=== PATIENT | female | born 1940 | race Caucasian/White ===

== ENCOUNTER 2021-02-09 05:05 | Inpatient (IN) | payer OTHER ==
[~2021-02-09] VITALS: Ht 157.5 cm; Wt 78.5 kg
[2021-02-09] VITALS (52 sets, daily range): BP systolic 89–182; BP diastolic 33–108
[~2021-02-09 05:05] MED LIST: ACETAMINOPHEN650 M5 PO; ACID CONTROL20 MG PO; ADULT LOW DOSE81 MG PO; AFLURIA 2045 MCG/0.4; ASPIRIN325 PO; CARVEDILOL12.5 MG PO; COLACE100 MG PO; COREG PO; COUMADIN 1MG TAB1 M1 PO; COUMADIN 2 MG TA2 M1 PO; COUMADIN 4 MG TA4 M1 PO; COZAAR 50 MG TA50 M1 PO; COZAAR100 MG PO; DARVOCET-N 1001 EAC1 PO; FAMOTIDINE PO; FERRO-TIME325 MG PO; FOLIC ACID0.4 MG PO; HYDROCHLOROTHIA25 M1 PO; HYDROCHLOROTHIA25 M2 PO; HYDROCODON-ACE1 EAC7 PO; LISINOPRIL10 MG PO; LOPRESSOR25; LOPRESSOR25 PO; MAGNESIUM250 MG PO; MELOXICAM7.5 MG PO; NIASPAN 500 MG500 M1 PO; NORCO 5-325 TA1 EACH PO; PACERONE 200 M200 M1 PO; PERCOCET 5-3251 EACH PO; PLAVIX 75 MG TA75 MG PO; PNEUMOVAX25 MCG/0.5; PRILOSEC 20 MG20 MG PO; PRILOSEC40 MG PO; SYNTHROID75 MCG PO; ULTRAM 50MG TAB50 MG PO; VENOFER100 MG/51 IV; VITAMIN B-6100 MG PO; VITAMINC500 PO; VOLTAREN GEL 1100 G1; ZOCOR 20 MG TAB20 M1 PO; ZOCOR40 MG PO
--- NOTE | 2021-02-09 19:38 | NUR ---
RN ADMITTED PT FROM [facility] AT 0730AM, PT IS CONFUSED, HOSPITAL DR , NEUROLOGY DR AND CARDIOLOGY DR HAVE SEEING PT, NEW ORDER RECEIVED, PT IS ON NPO AND IV D5NS @75ML/HR, RN HAS CALLED TO REPORT PT'S AGITATION, NEW ORDER RECEIVED, PT'S VS ARE STABLE WHEN PT STAYS IN CALM , RN HAS REPROTED TO NEXT SHIFT TO KEEP EYE ON PT.
--- NOTE | 2021-02-09 23:15 | NUR ---
PT CONFUSED AND AGITATED AT START OF SHIFT. ZYPREXA GIVEN BY PREVIOUS NS AT APPROXIMATELT 16:20. PT ALERT TO SELF. SHE WAS UNABLE TO ANSWER OR FOLLOW INSTRUCTIONS TO COMPLETE THE [facility] STROKE SCALE. SHE DID KNOW HER NAME AND DATE. NEUROLOGIST ARTIST COLOR SEPARATION NOTIFIED OF CONTINUED CONFUSION. DEPACON ORDERED. NOTIFIED BRIQUETTE MAKER PT AGITIATED, PULLING AT LINES AND ATTEMPTING TO GET OOB. SOFT WRIST RESTRAINTS APPLIED. BY THE TIME DEPACON WAS AVAILABLE PTS, PULSE DROPPPED INTO 50s. , BP WNL 125/46. PT SLEEPING. NOTIFIED jackeline FOX BRIQUETTE MAKER OF PULSE IN 50s. HELD DEPACON ORDERED. ZYPREXA GIVEN AGAIN DUE TO PT BECAME RESTLESS IN BED AGAIN. SHE IS NOW SLEEPING. WILL CONTINUE TO MONITOR FOR CHANGES.
[2021-02-10] VITALS (57 sets, daily range): BP systolic 117–195; BP diastolic 40–156
--- NOTE | 2021-02-10 03:39 | NUR ---
BP ELEVATED 170-180S ESPITE HYDRALAZINE. METOPROLOL IV GIVEN. BP BETTER 156/62. PULSE 55 . ZYPREXA GIVEN . PT NOW SLEEPING.
[2021-02-10 04:38] LABS: HEMATOCRIT 35.3 % (37.0-47.0); HEMOGLOBIN 11.6 gm/dL (12.0-15.0); MCHC 32.9 g/dL (28.0-37.0); MCV 88.2 fL (80.0-100.0); RDW 16.4 % (10.5-14.5); WBC 10.1 thou/uL (4.0-11.0)
[2021-02-10 04:41] LABS: CALCIUM 9.6 mg/dL (8.5-10.1); CREATININE 1.1 mg/dL (0.6-1.0); MAGNESIUM 1.7 mg/dL (1.8-2.4); POTASSIUM 3.5 mmol/L (3.5-5.1)
--- NOTE | 2021-02-10 07:51 | NUR ---
PT REMAINS CONFUSED AND UNCOOPERATIVE WITH CARES AND NIH. HELD METOPROLOL THIS AM DUE TO PULSE IN THE 50s. SATS WNL. NO C/O OTERO/ DENIED PAIN OR CHESTPAIN TONIGHT. ZGARD TO BOTTOM . NYSTATIN TO ABDOMINAL FOLDS. MG 1.7Y . 2GM MG SULFATE IVPB GIVEN ORDERED.
--- NOTE | 2021-02-10 08:13 | HC ---
[facility] [place] [place] [address] CONSULTATION Name: APOLLO BARRAZA Room #: 246-P ADM IN M.R.#: [id number] Admission: 02/09/21 Attend Phys: Ted Renya MD Discharge: Date of : 44 Report #: [id number] THIS REPORT FOR: cc: Eligio Prabhakar MD, Bruce D. MD Park, Jin S. MD ~ DOC #: [id number] Kory Szymanski MD DATE OF SERVICE: 02/09/2021 CARDIOLOGY CONSULTATION INDICATION: History of mitral valve replacement. HISTORY OF PRESENT ILLNESS: This is a 80-year-old female with a history of CABG, mechanical mitral valve replacement, carotid endarterectomy, hypertension, admitted with confusion and mental status change. The patient is a poor historian and the history is obtained from medical records. She was initially evaluated in the ER at [facility], transferred to [facility] as their ICU was full. According to the ER history, the family reports that she became confused and combative. They report no recent trauma. She denies any episodes of shortness of breath or chest pain. She is not oriented to place or year. PAST MEDICAL HISTORY: CABG in 1998. Coronary stents in 2009. Mechanical mitral valve replacement in 2009. History of ischemic cardiomyopathy, carotid endarterectomy, chronic kidney disease. History of anemia with previous IV iron infusions. Hypertension and hypercholesterolemia. ALLERGIES: None. MEDICATIONS: At home include warfarin, carvedilol 12.5 b.i.d., omeprazole, losartan 100 mg, HCTZ, aspirin, simvastatin 40 mg. SOCIAL HISTORY: Negative for tobacco use. The patient lives with her . FAMILY HISTORY: Unobtainable. REVIEW OF SYSTEMS: Unobtainable. PHYSICAL EXAMINATION: VITAL SIGNS: Blood pressure is 120/70, heart rate is 70 beats per minute. GENERAL APPEARANCE: An elderly appearing female, lethargic, but able to answer a few simple questions. HEENT: Normocephalic, atraumatic. Oral mucosa moist. NECK: Supple. [facility] [address] [place] [address] CONSULTATION Name: APOLLO BARRAZA Room #: 246-P [facility] IN M.R.#: [id number] Admission: 02/09/21 Attend Phys: Ted Reyna MD Discharge: Date of : 44 Report #: [id number] LUNGS: Clear to auscultation. HEART: S1, S2 positive. 1/6 systolic murmur. ABDOMEN: Soft, nontender. EXTREMITIES: No cyanosis. Trace edema. LABORATORY DATA: Pending. INR is 1.7 from [place] this morning. ECG reveals sinus rhythm with a right bundle branch block, PVCs. ASSESSMENT AND PLAN: 1. Mental status change/confusion, rule out infectious process. Await neuro evaluation. 2. Mechanical mitral valve replacement, on Coumadin. INR subtherapeutic. Recommend Lovenox if cleared by neurology. 3. Coronary artery disease/coronary artery bypass graft/stents, appears to be stable. We will check a troponin level. 4. Hypertension, low blood pressure, hold blood pressure medications at this time. 5. Hypercholesterolemia, continue statin therapy. Kory Szymanski MD JP/LORENZO <ELECTRONICALLY SIGNED> By: Kory Szymanski MD 02/10/21 0813 [id number] Kory Szymanski MD /nt
[2021-02-10] MEDS ORDERED: ULTRACET TABLET1 TAB PO (12:17)
[2021-02-10] MEDS ORDERED: JANTOVEN4 MG PO (12:30)
--- NOTE | 2021-02-10 18:19 | NUR ---
RN ASSUMED PT'S CARE AT 0700AN, PT STILL IS CONFUSED AND IMPULSIVE , PT TRIES TO PUT OUT HER IV LINES AND BP CUFF , PT STILL IS ON BOTH WRIST SOFT RESTRAINT, PT CAN NOT FOLLOW COMMANDS, BUT PT STARTS TALKING , PT STARTS MICARDIPINE IV DRIP AT 1630PM FOR HIGH BP, RN HAS TITRATED TO 7.5MG/[id number] KEEP SBP < 160MMGH PER ORDER, PT HAS ORDER FRO LOW POTASSIUM REPLACEMENT TODAY, RN WILL REPORT TO NEXT SHIFT TO MYKEL ENAMORADO ON PT.
[2021-02-11] VITALS (42 sets, daily range): BP systolic 99–161; BP diastolic 38–81
[2021-02-11 03:49] LABS: CALCIUM 9.4 mg/dL (8.5-10.1); CREATININE 1.1 mg/dL (0.6-1.0); MAGNESIUM 1.8 mg/dL (1.8-2.4); POTASSIUM 3.3 mmol/L (3.5-5.1)
--- NOTE | 2021-02-11 04:04 | NUR ---
PT REMAINS CONFUSED, ORIENTED TO SELF ONLY. SHE COULD STATE HER NAME, BUT WAS UNABLE TO ACCURATELY VERBALIZE HER BIRTHDATE OR AGE. SHE C/O A MILD HEADACHE AND SOME BACK PAIN. SHE REMAINS IN BILATERAL WRIST RESTRAINTS SHE TRIES TO PULL AT LINES. SHE GETS VERBALLY AND PHYSICALLY AGITATED WITH NURSING CARES. DURING 0400 ASSESSMENT, PT ATTEMPTED TO HIT AND KICK AT NURSING STAFF. PT IS GENERALLY CALM WHEN NURSING STAFF IS NOT IN THE ROOM. SBP 130S-140S WHILE ON NICARDIPINE GTT. PT DID HAVE 100.1 FEVER AT BEGINNING OF SHIFT. FEVER RESOLVED WITH TYLENOL. NOT PROGRESSING WELL TOWARD POC GOALS. WILL CONTINUE TO MONITOR FURTHER.
--- NOTE | 2021-02-11 07:46 | NUR ---
UPON ARRIVAL PT IS GOING IN AND OUT OF BIGEMINY RHYTHM, POTASSIUM WAS LOW THIS MORNING MD NOTIFIED, THERE IS AN ORDER FOR HYDROCHLOROTHIAZIDE THIS MORNING. CURRENTLY AWAITING RESPONSE AT THIS TIME.
[2021-02-11 09:33] LABS: INR 1.7; PROTIME 17.6 Seconds (9.3-11.4)
--- NOTE | 2021-02-11 11:16 | NUR ---
chart review. discussed during am rounds and los. unable to visit with randy sutton resting with eyes closed. cm spoke with spouse jasper via phone call. intro to cm and dcp. pt from [facility], possible going for mri today. in restraints during am rounds. spouse reported, they live at home in house. son lives there also but works during the day. she independent, has cane. manage own medication. cooks and cleans kitchen. spouse does most of laundry and cleans the floor. still drives but jasper drives often. 5 steps from front door and then 5 more steps inside home. no hh or rehab in past. " 4 heart attacks and valve replacement 8-9 years ago"/jasper. will cont following as needed for dc needs.
--- NOTE | 2021-02-11 23:38 | NUR ---
PT REMAINS CONFUSED BUT MORE COOPERATIVE THIS SHIFT. C/O BACK PAIN. PRN TRAMADOL GIVEN. DENIES HEADACHE. TITRATING HEPARIN GTT PER PROTCOL. NO S/S BLEEDING NOTED. VSS. AFEBRILE. PT IS RESTLESS, BUT DOES NOT TRY TO GET OUT OF BED. RESTRAINTS REMAIN OFF. FALL PRECAUTIONS IN PLACE. WILL CONTINUE TO MONITOR.
[2021-02-12] VITALS (16 sets, daily range): BP systolic 90–168; BP diastolic 35–140
--- NOTE | 2021-02-12 03:13 | NUR ---
0100 - PT BECAME VERY RESTLESS AND IMPULSIVE, TRYING TO GET OUT OF BED. SHE WAS AGITATED AND COMBATIVE WITH NURSING STAFF. PT WAS VERY CONFUSED, UNAWARE THAT SHE IS IN THE HOSPITAL. SECURITY CALLED TO PT'S ROOM. IM OLANZAPINE GIVEN. PT THEN RESTED CALMLY IN THE BED FOR ROUGHLY 1.5 HOURS. PT IS NOW RESTLESS AGAIN IN THE BED, HAVING HALLUCINATIONS. BED ALARM ON. FALL PRECAUTIONS IN PLACE. PT NOT PROGRESSING WELL TOWARD POC GOALS. WILL CONTINUE TO MONITOR LEMUEL.
--- NOTE | 2021-02-12 03:31 | NUR ---
PT STILL VERY RESTLESS, TRYING TO GET OUT OF BED. NOTIFIED SLEEP LAB TECHNOLOGIST CHRIS. ORDER RECEIVED FOR HALDOL.
[2021-02-12 05:24] LABS: APTT 70.8 Seconds (24.5-32.8); INR 1.54; PROTIME 16.4 Seconds (10.5-12.1)
--- NOTE | 2021-02-12 09:15 | NUR ---
AT BEDSIDE. PT REFUSING MEDICATIONS AND BREAKFAST. PT STATES, "GET OUT OF MY HOUSE. YOU ARE ALL CRAZY." PT COMBATIVE W/ CARE, STATING, "DON'T TOUCH ME. YOU DON'T BELONG IN MY HOUSE. YOU'VE MADE MY JUST CRAZY YOU." PT ATTEMPTING TO HIT NURSES DURING CARE, STATING, "I WILL KNOCK YOU INTO NEXT WEEK IF YOU TOUCH ME." ZYPREXA IM GIVEN W/ ASSISTANCE X 2 NURSES. REASSURANCES PROVIDED TO PT AND . VERBALIZES UNDERSTANDING.
--- NOTE | 2021-02-12 10:54 | NUR ---
AT APPX 1000, DR. DELCID CONTACTED REGARDING PT'S PERSISTENT CONFUSION W/ VISUAL HALLUCINATIONS, COMBATIVENESS, IMPULSIVENESS, AND INABILITY TO REDIRECT. PT'S AND BROTHER AT BEDSIDE. PT REQUIRED RESTRAINTS TO PROTECT LINES/TUBES FROM PICKING/PULLING. PT'S , JOSE JUAN, UPDATED ON CONDITION AND NEED FOR RESTRAINTS. JOSE JUAN VERBALIZED UNDERSTANDING.
[2021-02-12 11:35] LABS: HEMATOCRIT 36.9 % (37.0-47.0); MCH 29.1 pg (26.0-34.0); MCHC 32.4 g/dL (28.0-37.0); MCV 89.9 fL (80.0-100.0); RBC 4.11 mil/uL (4.20-5.00); RDW 16.7 % (10.5-14.5); WBC 15.4 thou/uL (4.0-11.0)
[2021-02-12 11:42] LABS: ALBUMIN 3.4 g/dL (3.4-5.0); CALCIUM 9.7 mg/dL (8.5-10.1); CREATININE 1.2 mg/dL (0.6-1.0); POTASSIUM 3.4 mmol/L (3.5-5.1); TOTAL BILIRUBIN 0.8 mg/dL (0.2-1.0); TOTAL PROTEIN 7.8 g/dL (6.4-8.2)
[2021-02-12 12:37] LABS: URINE BILIRUBIN NEGATIVE (Negative); URINE BLOOD TRACE (Negative); URINE CLARITY CLEAR; URINE COLOR YELLOW; URINE GLUCOSE-RANDOM* NEGATIVE (Negative); URINE KETONES NEGATIVE (Negative); URINE LEUKOCYTES 1+ (Negative); URINE NITRITE NEGATIVE (Negative); URINE PROTEIN (DIPSTICK) NEGATIVE (Negative); URINE SPECIFIC GRAVITY <= 1.005 (1.005-1.035); URINE UROBILINOGEN 0.2 E.U./dl (0.2-1.0)
[2021-02-12 12:47] LABS: SQUAMOUS >10 Many /LPF (0-3)
[2021-02-12 12:48] LABS: BACTERIA 1-9 Few /HPF (None Seen); CASTS None Seen /LPF (None Seen); CRYSTALS None Seen /LPF (None Seen); URINE RBC 1-2 Rare /HPF (NONE SEEN); URINE WBC 6-15 Few /HPF (NONE SEEN)
--- NOTE | 2021-02-12 14:00 | NUR ---
AT APPX 1240, PT OFFERED LUNCH TRAY WHICH WAS REFUSED. PT OFFERED PO FLUIDS WHICH WAS REFUSED. PT STATE, "I'M NOT HUNGRY." ENCOURAGEMENT AND SUPPORT OFFERED.
--- NOTE | 2021-02-12 15:00 | NUR ---
PT'S SON AND DAUGHTER AT BEDSIDE. UPDATE GIVEN ON PT CONDITION AND CURRENT TREATMENT. VERBALIZED UNDERSTANDING.
--- NOTE | 2021-02-12 17:35 | NUR ---
PT VERY CONFUSED, COMBATIVE, UNCOOPERATIVE W/ CARE, IRRITABLE AND BELLIGERENT TODAY. BUE RESTRAINED DUE TO PULLING AT LINES/TUBES AND ATTEMPTING TO UNSAFELY EXIT THE BED NUMEROUS TIMES. FAMILY AT BEDSIDE ALL DAY. UPDATES GIVEN AT INTERVALS. UNFORTUNATELY, THE PT IS NOT PROGRESSING TOWARD GOALS AT THIS TIME.
[2021-02-13] VITALS (10 sets, daily range): BP systolic 95–156; BP diastolic 40–58
--- NOTE | 2021-02-13 06:35 | NUR ---
Patient slept most of the shift. When patient aroused for assessment, patient stated, "why are you waking me up? All I want to do is sleep." Patient then heard the patient next door yelling and she thought it was her and that we were torturing him. She was adement about getting out of bed to help him. Haldol given and patient them went back to sleep. Patient much more plesant this am. Willing to do mouth care and back care. We wached her face and she let lab draw her blood. Patient still confused about where she is and is not very redirectable. Heart rate and rhythm stable. Blood presures stable. Adequate oxygenation on room air. Adequate U/O. See interventions for assessment details. Patient is progressing towards goals.
[2021-02-13 06:47] LABS: HEMATOCRIT 33.6 % (37.0-47.0); MCH 28.8 pg (26.0-34.0); MCHC 32.7 g/dL (28.0-37.0); RBC 3.82 mil/uL (4.20-5.00); RDW 16.3 % (10.5-14.5); WBC 9.5 thou/uL (4.0-11.0)
[2021-02-13 06:59] LABS: INR 1.94; PROTIME 20.5 Seconds (10.5-12.1)
[2021-02-13 07:09] LABS: APTT 82.4 Seconds (24.5-32.8)
[2021-02-13 07:15] LABS: CALCIUM 9.3 mg/dL (8.5-10.1); CREATININE 1.5 mg/dL (0.6-1.0); POTASSIUM 3.4 mmol/L (3.5-5.1)
--- NOTE | 2021-02-13 13:30 | NUR ---
2010- ASSESSMENTS AND VITAL SIGNS DOCUMENTED. REPORT GIVEN TO ANOTHER RN FOR CONTINUATION OF CARE.
--- NOTE | 2021-02-13 18:38 | NUR ---
END OF SHIFT PT NOT PROGRESSING TOWARDS GOALS. REMAINS RESTRAINED AND CONFUSED.
[2021-02-14] VITALS (18 sets, daily range): BP systolic 104–173; BP diastolic 37–100
[2021-02-14 05:04] LABS: HEMATOCRIT 29.6 % (37.0-47.0); HEMOGLOBIN 9.8 gm/dL (12.0-15.0); MCH 29.4 pg (26.0-34.0); MCHC 33.2 g/dL (28.0-37.0); MCV 88.7 fL (80.0-100.0); RBC 3.34 mil/uL (4.20-5.00); RDW 16.2 % (10.5-14.5); WBC 17.7 thou/uL (4.0-11.0)
[2021-02-14 05:12] LABS: CREATININE 1.5 mg/dL (0.6-1.0)
[2021-02-14 05:27] LABS: INR 3.23; PROTIME 33.3 Seconds (10.5-12.1)
--- NOTE | 2021-02-14 05:37 | NUR ---
Pt. able state her name ,catrachita and she's at the hospital at beginning of shift then later on oriented to person only. She has been restless , impulsive and attempting to get out of bed. She slept intermittently during the night but mostly awake.She is talking to somebody in the room when awake. Medicated for pain for generalized pain , stating she hurt all over with some relief. Haldol also given with not much help. Zyprexa 5 mg IM given with some help. Slept some then woke up in an calmer mood and more cooperative but remains restless. Assisted to reposition for comfort. No bleeding from being on heparin gtt. She has been afebrile and tolerating room air well. Making slow progress towards care plan goals.
--- NOTE | 2021-02-14 10:03 | NUR ---
Nutrition: Pt with minimal po intake past 5 days. Nsg reports unable to focus on eating due to hallucinations, confusion. Possibly ate some yesterday per records but unsure if accurate. Recommend initiation of Clinimix PPN at 80 mL/hr til pt eating adequately.
--- NOTE | 2021-02-14 15:16 | NUR ---
cm visit with pt, alert, confusion, talking to family and her cat who is not in the room. in restraints, pulling at lines. spouse jasper at bedside. he reported that this is not her baseline " she was independent at home, has cane, wheel chair- she doesnt use. manage own medication, pay the bills, still can drive but he drives. 5 steps to enter and 5 stairs inside the home per jasper. education on dcp, skilled rehab when ready for stable dc. no anticipated dc over the weekend. she will need to be restraint free for 24hours and able to work with therapy before any referral can be sent out.
--- NOTE | 2021-02-14 16:35 | NUR ---
CONFUSION AND RESTLESSNESS CONTINUES, VISUAL HALLUCINATIONS ONGOING. ATTEMPTED SEVERAL TRAILS OF RESTRAINT RELEASE WHILE IN THE ROOM WITH PATIENT AND SHE IMMEDIATELY ATTEMPTS TO REMOVE EQUIPMENT AND GET OUT OF BED. WAITING FOR MEDSURG ROOM NEAR THE NURSES STATION SO THAT SHE CAN BE FREE OF MEDICAL EQUIPMENT AND UNRESTRAINED. AT BEDSIDE AND ATTEMPTS TO REDIRECT PATIENT.
[2021-02-15] VITALS (29 sets, daily range): BP systolic 65–199; BP diastolic 21–133
--- NOTE | 2021-02-15 05:11 | NUR ---
pt aggressive and not cooperative for most of shift. hallucinating frequently, talking to her animals in the room, screaming that dogs are trying to bite her, and yelling at "the man in the corner" to get out of her house. delusions include: "my sister needs me to go pick her up because shes not safe," "the baby just fell off that table over there," and "I need to get my checkbook to give you money." pt spoke in a soft tone in "baby talk" to her "dog in bed with me." yelling at this rn to "get away from me, you dumb bitch." appeared to close eyes for maximum of 1 consecutive hour. constantly attempting to pull at tele wires, pull pillows out from under elbow, kick off scds and pull arms out of restraints. hr sr-st 60-100 with frequent pvc/trigeminy. 1x dose hydralazine. 1x dose of hydrocodone for pain in r hip. pt asking for pain meds, but when offered, refused, stating "you probably poisoned it." had to show pt package and convince her that it was a pain pill before she would swallow it.
[2021-02-15 05:20] LABS: HEMATOCRIT 25.1 % (37.0-47.0); HEMOGLOBIN 8.1 gm/dL (12.0-15.0); MCH 28.3 pg (26.0-34.0); MCHC 32.2 g/dL (28.0-37.0); MCV 87.8 fL (80.0-100.0); RBC 2.85 mil/uL (4.20-5.00); RDW 15.9 % (10.5-14.5); WBC 17.3 thou/uL (4.0-11.0)
[2021-02-15 05:27] LABS: INR 4.04; PROTIME 41.2 Seconds (10.5-12.1)
[2021-02-15 05:28] LABS: CALCIUM 9.2 mg/dL (8.5-10.1); CREATININE 1.4 mg/dL (0.6-1.0); POTASSIUM 3.5 mmol/L (3.5-5.1)
[2021-02-15 09:49] LABS: URINE BILIRUBIN NEGATIVE (Negative); URINE BLOOD NEGATIVE (Negative); URINE CLARITY CLEAR; URINE COLOR YELLOW; URINE GLUCOSE-RANDOM* NEGATIVE (Negative); URINE KETONES 1+ (Negative); URINE LEUKOCYTES-REFLEX TRACE (Negative); URINE NITRITE-REFLEX NEGATIVE (Negative); URINE PROTEIN (DIPSTICK) NEGATIVE (Negative); URINE UROBILINOGEN 0.2 E.U./dl (0.2-1.0)
--- NOTE | 2021-02-15 13:50 | NUR ---
discussed during am rounds and los, still requiring restraints rt pulling at lines, hitting, kicking. reported she been talking with people and animals in room that are not there. no anticipated dc over the weekend. will cont following as needed for dc needs. she might required rehab prior to dc home, her and live close to [place]. acute rehab vs skilled rehab was discussed with spouse during yesterdays visit with cm.
--- NOTE | 2021-02-15 14:01 | NUR ---
ASSUMED CARE OF PT AROUND 1300. PT RESTING QUIETLY AT THIS TIME VSS. AT BEDSIDE. WILL CONTINUE TO MONITOR.
[2021-02-16] VITALS (21 sets, daily range): BP systolic 81–164; BP diastolic 31–69
[2021-02-16 04:52] LABS: MCH 29.5 pg (26.0-34.0); MCHC 33.1 g/dL (28.0-37.0); MCV 89.2 fL (80.0-100.0); RBC 2.16 mil/uL (4.20-5.00); RDW 16.1 % (10.5-14.5); WBC 13.7 thou/uL (4.0-11.0)
[2021-02-16 05:04] LABS: INR 3.74; PROTIME 38.3 Seconds (10.5-12.1)
[2021-02-16 05:14] LABS: HEMATOCRIT 19.2 % (37.0-47.0); HEMOGLOBIN 6.4 gm/dL (12.0-15.0)
[2021-02-16 05:16] LABS: CALCIUM 8.5 mg/dL (8.5-10.1); CREATININE 1.6 mg/dL (0.6-1.0); POTASSIUM 3.4 mmol/L (3.5-5.1)
--- NOTE | 2021-02-16 05:16 | NUR ---
ASSESSMENTS CHARTED, MEDS CHARTED GIVEN. PATIENT STARTED SHIFT IN RESTRAINTS, SLEEPING. IN SINUS RHYTHM WITH BBB ON TELEMETRY. ON ROOM AIR. DURING SHIFT PATIENTS BLOOD PRESSURE DROPPED AND STAYED LOW. PATIENT ONLY RESPONSIVE TO STERNAL RUB. CALLED DR. BLOCK. ORDER FOR BOLUS, THEN ORDER FOR MAINTENANCE DRIP UNTIL BLOOD PRESSURE GOT UP INTO THE 160'S SYSTOLICLY. MAINTENANCE FLUIDS STOPPED, BLOOD PRESSURE MAINTANINED BELOW 150 SYSTOLIC. C/O PAIN IN RIGHT HIP AND LEG. GAVE ONE DOSE OF NORCO AT 0345 FOR PAIN. PATIENT WAS THEN TRANSFERED TO 4TH FLOOR. REPORT WAS GIVEN TO RECEIVING NURSE, ITEMS POSSESSIONS WERE GATHERED IN PREPARATIONS FOR MOVE. PLAN OF CARE IS FOR SPINAL TAP SOON WARFARIN IS OUT OF HER SYSTEM ENOUGH TO PREFORM TEST. FALL PRECAUTIONS IN PLACE DURING SHIFT. PATIENT WAS TAKEN OUT OF RESTRAINTS AT MIDNIGHT SHE WAS NOT MESSING WITH THE MEDICAL EQUIPMENT ANYMORE.
[2021-02-16 06:56] LABS: HEMATOCRIT 20.3 % (37.0-47.0); HEMOGLOBIN 6.5 gm/dL (12.0-15.0); MCH 28.6 pg (26.0-34.0); MCHC 32.1 g/dL (28.0-37.0); MCV 89.2 fL (80.0-100.0); RBC 2.27 mil/uL (4.20-5.00); RDW 16.3 % (10.5-14.5); WBC 15.3 thou/uL (4.0-11.0)
--- NOTE | 2021-02-16 15:47 | NUR ---
ASSUMED PT CARE THIS AM. PT A&OX1. VITAL SIGNS CHARTED. PHYSICIAN MADE AWARE OF FLUCTUATING BLOOD PRESSURES THROUGHTOUT DAY. PATIENT RECEIVED ONE UNIT OF RBC DURING THIS SHIFT. PATIENT APPEARED PALE WHEN ASSESSED THIS AM, ONCE BLOOD HAD TRANSFUSED, PATIENT SKIN APPEARED MORE APPROPRIATE IN COLOR. PATIENT WITH BRUISING TO BILATERAL UPPER EXTREMETIES, AND RIGHT HIP. REPORTED NO PAIN WHEN ASSESSED THIS AM, BUT REPORTED PAIN IN THE RIGHT LEG AND GIVEN PAIN MEDS PER EMAR. PATIENT PLACED ON TELEMETRY FOR CLOSER MONITORING. HEMOGLOBIN AND HEMATOCRIT TO BE RECHECKED. PATIENT ON ROOM AIR. ABLE TO MAKE NEEDS KNOWN. PATIENT RECEIVING A BED BATH TODAY AND SATURNINO CARE GIVEN. REPORTING NO NUMBNESS OR TINGLING. PATIENT TAKES MEDS WELL CRUSHED IN PUDDING. IV PATENT. FALL PRECAUTIONS ARE IN PLACE, CALL LIGHT WITHIN REACH.
[2021-02-16 16:26] LABS: HEMATOCRIT 24.8 % (37.0-47.0); HEMOGLOBIN 8.2 gm/dL (12.0-15.0)
[2021-02-17] VITALS (8 sets, daily range): BP systolic 129–166; BP diastolic 45–76
[2021-02-17 04:55] LABS: HEMOGLOBIN 6.6 gm/dL (12.0-15.0)
[2021-02-17 04:56] LABS: MCH 30.4 pg (26.0-34.0); MCV 89.2 fL (80.0-100.0); RBC 2.18 mil/uL (4.20-5.00); RDW 15.1 % (10.5-14.5); WBC 11.6 thou/uL (4.0-11.0)
[2021-02-17 05:06] LABS: HEMATOCRIT 19.5 % (37.0-47.0); INR 3.14; PROTIME 32.4 Seconds (10.5-12.1)
[2021-02-17 05:11] LABS: CALCIUM 7.9 mg/dL (8.5-10.1); CREATININE 1.4 mg/dL (0.6-1.0); POTASSIUM 3.3 mmol/L (3.5-5.1)
--- NOTE | 2021-02-17 05:52 | NUR ---
Assumed pt care at 1900. Alert and oriented to self only,able to voice needs at times. Visual hallucination noted on and off. Pt c/o pain to right hip with movement,medicated with Tramadol with some relief reported. Pt bruised on arms,abd and right thigh;Coumadin on hold.Pt repositioned as tolorated,jones patent with yellow urine noted. Incontinent of BM,small. Pt's HG 6.6,HCT 19.5 this morning;Ila GRIMES notified. N.o to tranfuse 1 unit PRBC today and recheck H&H 1 hour after transfusion. Fall precautions in place,frequent checks on pt. Pt observed attempting to pull IV/Jones lines hidden. SR/SB on telemetry. Resting w/o any distress, will continue to monitor pt.
--- NOTE | 2021-02-17 15:20 | NUR ---
Patient alert and orinted to self, tolerating diet well, eating with encouragment, family at bedside, haldol given scheduled per MAR for agitation, pain medications given per patients request, vitals stable, and afbriele. Bed alarm on. Will continue to monitor.
[2021-02-17 17:41] LABS: HEMATOCRIT 25.7 % (37.0-47.0)
[2021-02-17 17:43] LABS: HEMOGLOBIN 8.6 gm/dL (12.0-15.0)
[2021-02-18 05:47] LABS: HEMATOCRIT 27.3 % (37.0-47.0); HEMOGLOBIN 9.2 gm/dL (12.0-15.0); MCH 30.4 pg (26.0-34.0); MCHC 33.6 g/dL (28.0-37.0); MCV 90.5 fL (80.0-100.0); RBC 3.02 mil/uL (4.20-5.00); RDW 15.3 % (10.5-14.5); WBC 13.6 thou/uL (4.0-11.0)
[2021-02-18 05:55] LABS: CALCIUM 8.4 mg/dL (8.5-10.1); CREATININE 1.2 mg/dL (0.6-1.0); INR 2.15; POTASSIUM 3.4 mmol/L (3.5-5.1); PROTIME 22.6 Seconds (10.5-12.1)
--- NOTE | 2021-02-18 07:42 | NUR ---
PT LYING IN BED. INCONTINENT. IMPULSIVE AND SOMETIMES COMBATIVE. LORTAB PROVIDING PAIN RELIEF. FREQUENT OBSERVATION.
[2021-02-18 08:03] VITALS: BP 175/61
--- NOTE | 2021-02-18 19:06 | NUR ---
Patient alert and orinted to only self, bed alarm on, on room air, medications given per MAR, patient calm throughout the day, has been at bedside, vital signs stable, and afbriele. Call light with in reach. bed alarm on, will continue to monitor.
[2021-02-18 19:27] VITALS: BP 149/67
--- NOTE | 2021-02-19 04:18 | NUR ---
Assumed pt care at 1900. A/OX1-2, able to voice needs at times. pt's is impulsive as well, pulling on IV's,tele and gown,lines hidden without any success. Medicated per EMAR with Haldol with minimal relief. Pt's IV reinserted after 6 attempts. Pt later pulled IV out even after being hidden and covered in coban. Pt has refused to have IV reinserted at this time and hitting staff's hand to stop. Boat Designer Mu notified of pt's status and indicated we give patient time to settle and try during the day. Pt has ABTs/IV fluids d/t at this time, will pass on to oncoming nurse. Fall precautions in place,frequent checks on pt as she's trying to get herself of bed frequently too. Incontinent of B&B this shift.
[2021-02-19 04:38] LABS: HEMATOCRIT 27.3 % (37.0-47.0); HEMOGLOBIN 9.3 gm/dL (12.0-15.0); MCH 31.1 pg (26.0-34.0); MCV 91.5 fL (80.0-100.0); RBC 2.98 mil/uL (4.20-5.00); RDW 15.3 % (10.5-14.5); WBC 14.5 thou/uL (4.0-11.0)
[2021-02-19 04:47] LABS: CALCIUM 8.5 mg/dL (8.5-10.1); CREATININE 1.1 mg/dL (0.6-1.0); POTASSIUM 3.5 mmol/L (3.5-5.1)
[2021-02-19 07:32] VITALS: BP 165/80
[2021-02-19 08:16] LABS: INR 1.7; PROTIME 18.1 Seconds (10.5-12.1)
--- NOTE | 2021-02-19 11:46 | NUR ---
CARE TEAM INDICATED THAT THEY ANTICIPATE RECHECKING PT'S INR AND THEN POSSIBLY DOING LP. ST ASSESSED PT. PT AND OT WERE OREDERED TO EVALUATE. CARE TEAM INDICATED THAT PT WILL LIKELY NEED POST ACUTE CARE STAY. CM TO VISIT WITH SPOUSE WHO VISITS DAILY TO PROVIDE [facility] SNF LIST FOR REVIEW. CM FOLLOWING REGARDING DC PLANNING.
[2021-02-19 18:01] VITALS: BP 158/70
--- NOTE | 2021-02-19 20:01 | NUR ---
Patient alert and orinted to person, on room air, up with a assist with walker with one, vital signs stable, and afbreile. Patient saline locked. Call light with in reach, bed alarm on, will continue to monitor.
[2021-02-20 03:59] VITALS: BP 178/72
--- NOTE | 2021-02-20 05:19 | NUR ---
Assumed pt care at 1900. A/OX2,sleepy but easily arousable. HS/midnight med held. VSS. Pt awake this morning and requested to go to the bathroom,up with GB/RW, limp slow gait to the BR. Incontinent of soft unformed BM. C/o right hip pain 06/07, mediacated with [place],will monitor effectiveness. SB/SR on telemetry. Fall precautions in place,will continue to monitor pt.
[2021-02-20 07:38] LABS: HEMATOCRIT 24.2 % (37.0-47.0); HEMOGLOBIN 8.2 gm/dL (12.0-15.0); MCV 91.2 fL (80.0-100.0); RBC 2.66 mil/uL (4.20-5.00); RDW 15.4 % (10.5-14.5); WBC 11.8 thou/uL (4.0-11.0)
[2021-02-20 07:51] LABS: CALCIUM 8.4 mg/dL (8.5-10.1); CREATININE 1.4 mg/dL (0.6-1.0); POTASSIUM 3.2 mmol/L (3.5-5.1)
[2021-02-20 07:58] LABS: INR 1.3; PROTIME 13.8 Seconds (9.3-11.4)
--- NOTE | 2021-02-20 11:42 | NUR ---
ASSUMED PT CARE THIS AM. PT A&OX1-1. ABLE TO MAKE NEEDS KNOWN. PATIENT HAS BEEN COOPERATIVE WITH STAFF DURING THIS SHIFT. PATIENT HAS BEEN CONTINENT AND HAS AMBULATED TO THE BATHROOM WITH ASSIST. REPORTS PAIN IN THE RIGHT LOWER EXTREMITY/HIP AREA, RESPONDED WELL TO PAIN MEDS GIVEN PER EMAR. PATIENT HAS BRUISING ON BILATERAL UPPER EXTREMETIES. PATIENT IS ON ROOM AIR. REPORTING NO NUMBNESS OR TINGLING. PATIENT REMAINS ON TELEMETRY. IV PATENT, SALINE LOCKED. FALL PRECAUTIONS ARE IN PLACE, CALL LIGHT WITHIN REACH. AT BEDSIDE.
--- NOTE | 2021-02-20 12:30 | HC ---
[facility] [place] [address] CONSULTATION Name: APOLLO BARRAZA Room #: 451-P ADM IN M.R.#: [id number] Admission: 02/09/21 Attend Phys: Ted Reyna MD Discharge: Date of : 44 Report #: [id number] THIS REPORT FOR: cc: Eligio Prabhakar MD, Bruce D. MD Barry, Joseph W. MD ~ DOC #: [id number] Milad Peralta MD DATE OF SERVICE: 02/19/2021 INFECTIOUS DISEASE CONSULTATION ATTENDING PHYSICIAN: Dr. Reyna. REASON FOR EVALUATION: Marked encephalopathy, question of HULL AND DECK REMOVER infection. HISTORY OF PRESENT ILLNESS: Chart was reviewed. The patient was examined. This is a 80-year-old woman with history of known vasculopathy, has previous mitral valve replacement, hypertension, who presented with marked change in her mental status, abrupt nature ____ hospital. She was transferred here for ongoing care. She was found to be markedly hypertensive and was improved. Encephalopathy has improved at least intermittently, although it is sort of cyclical. She was noted to be significantly anticoagulated. This has been complicated by multiple hematomas. She continues to have marked encephalopathy, although per nurse it was better yesterday, not really arouse her. At this point, her eyes are barely open, in moderate distress. She is to have a lumbar puncture; however, due to her elevated PT/INR, this has been postponed, empirically placed on ceftriaxone for suspected complicated urinary tract infection and had been briefly on IV acyclovir as well. She has not had fevers. No history of recent focal neurological deficits. There was a question of TIA, carotid artery shows mild bilateral atherosclerotic plaquing. Chest x-ray showed no acute infiltrates. CT abdomen and pelvis showed a heterogeneous right psoas muscle consistent with a retroperitoneal hematoma. Also, multiple rounded soft tissue masses are present. Right lower back and right buttock again suggesting hematoma, prior left nephrectomy and porcelain gallbladder as well. ALLERGIES: None known. MEDICATIONS: Include levothyroxine, ceftriaxone, Haldol as needed, carvedilol, olmesartan, topiramate, warfarin, hydrochlorothiazide, aspirin, pantoprazole, nicardipine, tramadol, p.r.n. analgesics. PAST MEDICAL HISTORY: As described above, hypertension, high cholesterol, history of known coronary disease with previous acute myocardial infarction, aortocoronary bypass grafting, mitral valve replacement, reflux, hypothyroidism, previous left nephrectomy, asthma, iron deficiency anemia, [place] [address] CONSULTATION Name: APOLLO BARRAZA Room #: 451-P [facility] IN ..#: [id number] Admission: 02/09/21 Attend Phys: Ted Reyna MD Discharge: Date of : 44 Report #: [id number]. SOCIAL HISTORY: Nonsmoker, no ethanol, no illicit drug use. FAMILY HISTORY: Noncontributory. REVIEW OF SYSTEMS: Not obtainable. PHYSICAL EXAMINATION: GENERAL: She appears chronically ill. She is mildly restless, in moderate distress, really does not respond more than a basic level. VITAL SIGNS: Temperature 98.4, pulse 72, respirations 17, blood pressure is 165/80. SKIN: Warm. HEENT: Normocephalic. She does have a degree of neck stiffness. I am not sure this is true meningismus. LUNGS: Diminished breath sounds. HEART: Regular rhythm with mitral valve click, appreciated murmur. ABDOMEN: Appears to be uncomfortable with exam, although this is due to abdominal wall hematoma, does not appear to be acute overt peritoneal signs. GENITOURINARY AND RECTAL: Deferred. LABORATORY DATA: Recent PT 18.1, INR of 1.7. Electrolytes: Sodium 140, potassium 3.5, chloride 105, bicarbonate is 22, anion gap of 13, BUN and creatinine 22 and 1.1, glucose of 93, estimated GFR 48. CBC: White count 14.5, H and H 9.3 and 27.3, platelet count of 411. DIAGNOSTIC DATA: A CT abdomen and pelvis as noted above. MRI of the head on 02/11/2021 was otherwise unremarkable. No changes or inflammation noted in the temporal lobes, some mild chronic white matter vascular changes. ASSESSMENT AND PLAN: Encephalopathy abrupt onset with evidence at that point of hypertension, although no imaging evidence of any HULL AND DECK REMOVER inflammation or acute processes given likely this is not bacterial, when the viral is most common etiology given the history of exposures, although certainly arthropod exposure could lead to some sort of a meningoencephalitis, noted a delay in obtaining a lumbar puncture due to anticoagulation for mitral valve, not entirely clear, it seems less likely to me to be an infectious etiology. Continue to monitor closely if develops any other signs and symptoms, rash, etc., may give us additional clue or may require a followup diagnostic testing. She remains quite tenuous at this point. We will monitor expectantly. MD ALLISON Dennis/MICHEAL/ZULY [address] [address] CONSULTATION Name: APOLLO BARRAZA Room #: 451-P ADM IN M.R.#: [id number] Admission: 02/09/21 Attend Phys: Ted Reyna MD Discharge: Date of : 44 Report #: [id number] <ELECTRONICALLY SIGNED> By: Milad Peralta MD 02/20/21 1230 [id number] Milad Peralta MD /nt
[2021-02-20 13:35] LABS: CSF GLUCOSE 62 mg/dL (40-70); CSF PROTEIN 43 mg/dL (15-45)
[2021-02-20 13:42] LABS: CSF CLARITY CLEAR; CSF COLOR COLORLESS; VOLUME 2.5 ml
[2021-02-20 13:43] LABS: CSF RBC 0 /mm3; CSF WBC 1.1 /mm3 (0-10)
[2021-02-20 15:51] VITALS: BP 148/48
[2021-02-20 20:00] VITALS: BP 172/70
[2021-02-21 07:16] VITALS: BP 184/62
--- NOTE | 2021-02-21 07:37 | NUR ---
ASSESSMENT PER DOCUMENTATION.PT RESTED ALL NOC IN NAD.REMAINS PLEASANTLY CONFUSED BUT FOLLOWS COMMANDS APPROPRIATELY.PT HYPERTENSIVE W/SBP>170,PRN HYDRALAZINE GIVEN W/PARTIAL EFFECTIVENESS.STAFF ASSIST W/TRANSFERS.PT HAD COUPLE OF LOOSE BOWELS MOVEMENT,NOTIFIED DAY RN TO KEEP AN EYE ON THE FREQUENCY AND IF NEED TO TEST FOR C-DIFF.NO ACTIVE BLEEDING NOTED.TYLENOL GIVEN FOR HEADACHE AND GENERALIZED PAIN.WILL CONT WITH POC.
[2021-02-21 11:20] VITALS: BP 139/60
--- NOTE | 2021-02-21 13:41 | NUR ---
PT HAD MRI THIS AM. CM REACHED OUT TO [facility] THIS AM AND SPOKE WIHT AURA. SHE INDICATED THAT SHE JUST FILLED HER LAST BED. SHE RECOMMENDED CM TRY [facility]. CM MET WITH PT AND SPOUSE AT BEDSIDE AND EXPLAINED THE ABOVE. THEY WERE AGREEABLE WITH REFERRAL BEING SENT TO [facility] FOR REVIEW. CM FAXED REFERRAL. PT WILL NEED AUTH FROM [facility] IF THEY ARE ACCEPTING. CM FAXED NEGATIVE COVID TEST. PT WILL LIKELY NEED TO BE 24HRS WITHOUT HALDOL PRIOR TO DC. CM FOLLOWING REGARDING DC PLANNING.
--- NOTE | 2021-02-21 13:56 | NUR ---
Received awake on bed. Due medications given as prescribed. On telemetry; no complains and signs of chest pain, crushing sensation and heaviness. On room air. Vital signs stable. On heart healthy diet- tolerating well; no nausea, no vomiting and no abdominal pain noted. With on and off incontience; checked frequently and changed as needed; using bedside commode at times. Falls bundle in place. Assisted and encouraged in eating and drinking. With bruise at R hip- from prev fall at home. With SL at L FA. With at bedside, update given. Assisted in ADLs. Pt went down for MRI via wheelchair, back to room safely. Pt seen and examined by PT/OT, able to sit out on the chair. Covid swab done, specimen obtained and sent to lab- as per CM; for placement. With BP elevation noted this AM, rechecked BP- WNL. To continue monitoring patient.
[2021-02-21 16:04] VITALS: BP 138/55
[2021-02-21 19:24] VITALS: BP 170/75
--- NOTE | 2021-02-22 01:53 | NUR ---
ASSESSMENT: PT REMAIN ALERT TO SELF ONLY. CONFUSED TO PLACE, SITUATION, AND TIME. FOLLOW SIMPLE COMMANDS. VSS, AFEBRILE. SR PER MONITOR. DENIES PAIN. HALDOL HELD FOR POSSIBLE PLACEMENT TODAY. BED ALARM SET, FALL PRECAUTIONS IN EFFECT. 3 BED RAILS ENGAGED. NO WRIST RESTRAINTS. NOT EAST TO REORIENT. PT INSIST ON BELIEVING THAT SHE LET A FRIEND DOWN SIMPLY BECAUSE; "SHE DID NOT DO WHAT SHE TOLD HER THAT SHE WAS GONNA DO". PT TALKS OF HER AND THINKS THAT HE IS IN THE ROOM. TRAMADOL GIVEN FOR GENERALIZED PAIN/LEG PAIN. SLOW PROGRESS TOWARDS DC GOALS. WILL CONTINUE TO MONITOR.
[2021-02-22 08:57] VITALS: BP 191/80
[2021-02-22 13:42] VITALS: BP 113/56
--- NOTE | 2021-02-22 13:47 | NUR ---
RAPID RESPONSE CALLED ON PATIENT. PATIENT SITTING ON COMMODE UPON ENTERING ROOM. PRESENTS VASOVAGAL RESPONSE. DR. MONTANEZ IN ROOM. INITIALLY PAGED CODE STROKE AND THEN CANCELLED DUE TO PATIENT PRESENTATION. PATIENT ALERT AND CONVERSING WITH STAFF. NO ONE SIDED NEGELECT OR DEFECIT. CANCELLED CODE STROKE PER DR. MONTANEZ. ORDERS FOR CBC, BMP, AND HEAD CT.
[2021-02-22 14:05] LABS: HEMATOCRIT 30.6 % (37.0-47.0); MCH 30.2 pg (26.0-34.0); MCHC 32.7 g/dL (28.0-37.0); MCV 92.4 fL (80.0-100.0); RBC 3.31 mil/uL (4.20-5.00); RDW 15.9 % (10.5-14.5); WBC 16.6 thou/uL (4.0-11.0)
[2021-02-22 14:12] LABS: CALCIUM 9.2 mg/dL (8.5-10.1); CREATININE 1.4 mg/dL (0.6-1.0); POTASSIUM 3.8 mmol/L (3.5-5.1)
--- NOTE | 2021-02-22 16:14 | NUR ---
CM CALLED TO CHECK WITH [facility] THIS AM BUT NO RESPONSE OF YET. CM INFORMED CARE TEAM THAT NEITHER OF THE SKILLED FACILITIES PT AND SPOUSE WANTED REFERRALS SENT TO ARE ACCEPTING OF PT CURRENTLY RELATED TO HER DOCUMENTED BEHAVIORS AND HER POTENTIAL NEED FOR 1:1. PT HAD POSSILE VASOVAGEL SYNCOPAL EPISODE HIS AFTERNOON AND UNDERWENT CTS. CM TO FOLLOW UP WIHT [facility] PT CLEARS BEGINING OF NET WEEK.
--- NOTE | 2021-02-22 17:37 | NUR ---
Assumed pt care at 7am.Pt in bed very confused and agitated trying getting out of bed without assist.Rn reoriented pt and she was able to eat and took meds with spouse assist.Around 1330, pt was on bsc having bm.hospital secretary was with pt trying to transfered pt to bed but pt became unresponsive. RAT team activated.Blood sugar was 123. V s taken and recorded as bp 113/56,pulse 72, temp97.1,o2 sat on room air was 96%.Dr Price rounded on pt and ct head and neck stat orderder.Pt was wheeled per bed to ct dept.Pt condition was improved and talking prior to going for ct. Pt heart rate per tele has been fluctuated but now stable.Dr Katz her for psych eval.Pt in bed resting at present.Will continue to monitor.
[2021-02-22 19:39] VITALS: BP 130/53
--- NOTE | 2021-02-23 01:29 | NUR ---
ASSSUMED CARE OF PT AT SHIFT CHANGE. PT IS ALERT BUT ONLY ORIENTED TO PERSON. FALL PRECAUTION IN PLACE. PT CAN BE IMPULSIVE. PT REPORTED SOME PAIN AND PRNS WERE PROVIDED. PT DENIED NAUSEA OR SOA. ASSESSMENT CHARTED. PT IS INCT AT TIMES. PT WAS ABLE TO GET COMFORTABLE AND SLEEP PART OF THE SHIFT. VSS AND NO S/S OF ACUTE DISTRESS. WILL CONTINUE TO MONITOR.
[2021-02-23 05:34] LABS: HEMATOCRIT 26.2 % (37.0-47.0); HEMOGLOBIN 8.8 gm/dL (12.0-15.0); MCH 31.1 pg (26.0-34.0); MCHC 33.6 g/dL (28.0-37.0); MCV 92.7 fL (80.0-100.0); RBC 2.82 mil/uL (4.20-5.00); WBC 12.4 thou/uL (4.0-11.0)
[2021-02-23 05:43] LABS: CALCIUM 8.7 mg/dL (8.5-10.1); CREATININE 1.3 mg/dL (0.6-1.0); POTASSIUM 3.3 mmol/L (3.5-5.1)
[2021-02-23 05:47] LABS: INR 1.14; PROTIME 12.4 Seconds (10.5-12.1)
[2021-02-23 07:10] VITALS: BP 111/53
--- NOTE | 2021-02-23 11:42 | NUR ---
Received awake on bed. Due medications given as prescribed, crushed and mixed with apple sauce. Still with confusion noted but not combative and aggressive, can be impulsive and go out of the bed at times- reassured from time to time. On telemetry; no complains and signs of chest pain, crushing sensation and heaviness. Assisted in ADLs. On room air. Vital signs stable. On heart healthy diet- tolerating well; no nausea, no vomiting and no abdominal pain. With on and off incontinence; checked frequently and changed as needed; able to use bedside commode at times; falls bundle in place- possible vaso-vagal yesterday as per Night RN. No complains of pain during assessment. With SL at L and R FA. To continue monitoring patient. With at bedside, update given. Pt seen and examined by Dr Dean this AM- for 5N evaluation since pt's not receptive to 5S and NH; a/w 5N evaluation and recommendations.
--- NOTE | 2021-02-23 13:09 | EKG ---
[place] [address] [facility] [place] [address] ELECTROCARDIOGRAM REPORT Name: REEMA BARRAZAN Maribell Room #: 451- ADM IN M.R.#: [id number] Admission: 02/09/21 Attend Phys: Ted Reyna MD Discharge: Date of : 44 Report #: [id number] [facility] Test Date: 2021-02-22 Test Time: 13:51:22 Pat Name: APOLLO BARRAZA Department: Room: [facility] Gender: F [employer] Designer: HOLLY : 1940 Requested By: Ted Reyna Order Number: [id number] MD: Brian Gonzales Measurements Intervals [place] Rate: 61 P: 104 PA: 145 QRS: -19 QRSD: 146 T: 14 QT: 485 QTc: 489 Interpretive Statements Sinus rhythm Right bundle branch block Left ventricular hypertrophy Anterior t wave chances similar to prior. Compared to ECG 08/02/2013 20:49:52 Electronically Signed On 02-23-2021 13:09:29 CDT by Brian Gonzales [email or web address] <ELECTRONICALLY SIGNED> By: Brian Gonzales MD 02/23/21 1309 1351 1351 Brian Gonzales MD /[facility]
[2021-02-23 15:35] VITALS: BP 107/54
[2021-02-23 19:15] VITALS: BP 132/42
[2021-02-24 05:41] LABS: INR 1.23; PROTIME 13.3 Seconds (10.5-12.1)
[2021-02-24 07:50] VITALS: BP 150/59
[2021-02-24] MEDS ORDERED: JANTOVEN4 MG PO ×2 (12:12→12:24)
[2021-02-24] MEDS ORDERED: CARVEDILOL12.5 MG PO (12:13)
[2021-02-24] MEDS ORDERED: BENICAR40 MG PO (12:14)
[2021-02-24] MEDS ORDERED: TOPAMAX 25 MG T25 M1 PO (12:15)
[2021-02-24 12:51] VITALS: BP 150/59
--- NOTE | 2021-02-24 14:06 | NUR ---
PATIENT DISCHARGED HOME AT THIS TIME. SHE AND AND SON WERE EDUCATED ON NEED TO F/U WITH PRIMATRY TO REPEAT INR COUMADIN DOSAGE WAS INCREASED. PATEINT IS ALERT ORIENTED X2. AND SON BOTH VOICED THEY WILL F/U TO REPEAT COUMADIN. NO COMPLAINTS AT TIME OF DISCHARGE. WILL CONT WIT PLAN OF CARE.
--- NOTE | 2021-02-25 22:23 | EEG ---
[facility] [place] [address] ELECTROENCEPHALOGRAM Name: APOLLO BARRAZA Room #: 451-P [facility] IN M.R.#: [id number] Admission: 02/09/21 Attend Phys: Ted Reyna MD Discharge: 02/24/21 Date of : 44 Report #: [id number] THIS REPORT FOR: //name// DOC #: [id number] Florian Zabala MD DATE OF SERVICE: 02/15/2021 This patient is being evaluated for altered mental status. This patient's EEG was done by placing the electrode by standard 10-20 system of electrode placement. Both referential and sequential montages were used for recording. Background activity in this patient's EEG is about 8-9 Hz. It is intermixed with theta range slowing on both sides. Photic stimulation is unremarkable. Throughout the record, no active epileptiform activity was noticed. IMPRESSION: This patient's EEG is intermixed with theta range slowing on both sides. That is a nonspecific abnormality which can occur with encephalopathy, dementia, effect of psychotropic medication, drowsiness, etc. Clinical correlation is recommended. Florian Zabala MD PK/CHELLY <ELECTRONICALLY SIGNED> By: Florian Zabala MD 02/25/21 2223 [id number] Florian Zabala MD /regine
== END 2021-02-24 14:08 | disposition home or self-care (01) | DRG 682 ==
LOC: ICU 05:05 → 4W 02-16 04:51
PROVIDERS: Hospitalist; Internal Medicine; Nurse Practitioner Adult Health; Nurse Practitioner Family; Psychiatry & Neurology Neurology; Psychiatry & Neurology Psychiatry; ADMIT Internal Medicine; ATTEND Internal Medicine
DX: I12.9 Hypertensive chronic kidney disease with stage 1 through stage 4 chronic kidney disease, or unspecified chronic kidney disease (principal); G93.41 Metabolic encephalopathy; J18.9 Pneumonia, unspecified organism; R65.11 Systemic inflammatory response syndrome (SIRS) of non-infectious origin with acute organ dysfunction; I16.1 Hypertensive emergency; N17.9 Acute kidney failure, unspecified; E87.0 Hyperosmolality and hypernatremia; N39.0 Urinary tract infection, site not specified; I42.9 Cardiomyopathy, unspecified; E87.1 Hypo-osmolality and hyponatremia; M31.9 Necrotizing vasculopathy, unspecified; N18.2 Chronic kidney disease, stage 2 (mild); E78.5 Hyperlipidemia, unspecified; E78.00 Pure hypercholesterolemia, unspecified; I25.10 Atherosclerotic heart disease of native coronary artery without angina pectoris; E87.6 Hypokalemia; K21.9 Gastro-esophageal reflux disease without esophagitis; E03.9 Hypothyroidism, unspecified; D64.9 Anemia, unspecified; G43.909 Migraine, unspecified, not intractable, without status migrainosus; S40.022A Contusion of left upper arm, initial encounter; S40.021A Contusion of right upper arm, initial encounter; X58.XXXA Exposure to other specified factors, initial encounter; Z20.822 Contact with and (suspected) exposure to COVID-19; Y93.89 Activity, other specified; I25.2 Old myocardial infarction; Z95.1 Presence of aortocoronary bypass graft; Z79.82 Long term (current) use of aspirin; Z79.01 Long term (current) use of anticoagulants; Z79.899 Other long term (current) drug therapy; Z87.891 Personal history of nicotine dependence; Y92.89 Other specified places as the place of occurrence of the external cause; Y99.8 Other external cause status
CPT/HCPCS: 10045; 10078; 10203